=== PATIENT | male | born 1945 | race Caucasian/White ===

== ENCOUNTER 2017-09-25 16:17 | Inpatient (IN) | payer OTHER ==
[~2017-09-25] VITALS: Ht 185.4 cm; Wt 93.0 kg
[~2017-09-25 16:17] MED LIST: ALLO100T PO; COLC0.6T67 PO; DOCU250C PO; FENO160 PO; GLU500 PO; LEVO500T20 PO; NOR10 PO; PRO40 PO
[2017-09-25 18:40] VITALS: BP_SYST 150
[2017-09-25] MEDS ORDERED: ACETAMINOPHEN 325 MG TABLET PO PRN (19:00)
[2017-09-25 19:16] LABS: BASOPHILS % (AUTO) 0.7 % (0.0-2.0); EOSINOPHILS # (AUTO) 0.1 K/uL (0.0-0.4); EOSINOPHILS % (AUTO) 2.8 % (0.0-4.0); HEMATOCRIT 25.2 % (36-54); HEMOGLOBIN 7.6 g/dL (14.0-18.0); LYMPHOCYTES # (AUTO) 1.4 K/uL (1.0-5.5); LYMPHOCYTES % (AUTO) 34.1 % (20.5-51.5); MEAN CORPUSCULAR HEMOGLOBIN 19 pg (27-31); MEAN CORPUSCULAR HGB CONC 30 % (32-36); MEAN CORPUSCULAR VOLUME 65 fL (79.0-98.0); MONOCYTES # (AUTO) 0.5 K/uL (0.0-1.0); MONOCYTES % (AUTO) 11.3 % (1.7-9.3); NEUTROPHILS # (AUTO) 2.2 K/uL (1.8-7.7); NEUTROPHILS % (AUTO) 51.1 % (40.0-70.0); PLATELET COUNT (AUTO) 280 K/uL (130-430); RED CELL DISTRIBUTION WIDTH 19.4 % (9.0-15.0); WHITE BLOOD COUNT (AUTO) 4.3 K/uL (4.8-10.8)
[2017-09-25 19:30] VITALS: BP_SYST 165
[2017-09-25 19:30] LABS: PROTHROMBIN TIME 10.2 SECS (9.5-12.5)
[2017-09-25 19:31] LABS: ALANINE AMINOTRANSFERASE 15 U/L (12-78); ALBUMIN 3.6 g/dL (3.4-4.8); ANION GAP 8 (5-15); ASPARTATE AMINOTRANSFERASE 11 U/L (10-37); CALCIUM 9.2 mg/dL (8.4-11.0); CHLORIDE 103 mmol/L (98-107); CREATININE 0.64 mg/dL (0.55-1.30); GLUCOSE 122 mg/dL (70-99); POTASSIUM 3.7 mmol/L (3.5-5.1); SODIUM SERUM 134 mmol/L (136-145); TOTAL BILIRUBIN 0.3 mg/dL (0.0-1.0); UREA NITROGEN, BLOOD 16 mg/dL (8-21)
[2017-09-25] MEDS ORDERED: LOP600 PO (20:43)
[2017-09-25] MEDS ORDERED: LOSA100T11 PO (20:43)
[2017-09-25] MEDS ORDERED: COLCHICINE 0.6 MG TABLET PO SCH (21:00)
[2017-09-25] MEDS ORDERED: INSULIN ASPART 100 UNITS/ML, 10 ML VIAL (NovoLOG) SUBCUT PRN (21:15)
[2017-09-25] MEDS: GEMFIBROZIL 600 MG TABLET (LOPID) PO SCH (21:30)
[2017-09-25 22:40] VITALS: BP_SYST 165
[2017-09-25] MEDS ORDERED: amLODIPine BESYLATE 5 MG TABLET PO ONE (22:45)
[2017-09-25] MEDS: 0.45% NACL 1,000 ML IV SCH (23:20)
[2017-09-25] MEDS: PANTOPRAZOLE SODIUM 40 MG/VIAL (PROTONIX) IVP SCH (23:20)
[2017-09-26 02:00] VITALS: BP_SYST 180
[2017-09-26 08:14] VITALS: BP_SYST 145
[2017-09-26] MEDS: metFORMIN HCL 500 MG TABLET PO SCH ×2 (08:28→17:34)
[2017-09-26] MEDS: ALLOPURINOL 100 MG TABLET (ZYLOPRIM) PO SCH (08:28)
[2017-09-26] MEDS: GEMFIBROZIL 600 MG TABLET (LOPID) PO SCH ×2 (08:28→21:46)
[2017-09-26] MEDS: LOSARTAN POTASSIUM 50 MG TABLET (COZAAR) PO SCH (08:29)
[2017-09-26] MEDS: PANTOPRAZOLE SODIUM 40 MG/VIAL (PROTONIX) IVP SCH ×2 (08:29→21:46)
[2017-09-26] MEDS ORDERED: DOCUSATE SODIUM 250 MG CAPSULE PO SCH (09:00)
[2017-09-26] MEDS ORDERED: FENOFIBRATE 160 MG TABLET PO SCH (09:00)
[2017-09-26] MEDS ORDERED: amLODIPine BESYLATE 10 MG TABLET PO SCH (09:00)
[2017-09-26 09:59] LABS: TOTAL IRON BIND. CAPACITY 410 ug/dL (250-450)
[2017-09-26] MEDS: 0.45% NACL 1,000 ML IV SCH (11:38)
[2017-09-26] MEDS ORDERED: cefTRIAXone 1 GM in D5W 50 ML IV ONE (12:00)
[2017-09-26 12:24] VITALS: BP_SYST 133
[2017-09-26 14:13] LABS: BILIRUBIN,URINE NEGATIVE (NEGATIVE); BLOOD, URINE NEGATIVE (NEGATIVE); CLARITY/URINE CLEAR (CLEAR); COLOR,URINE YELLOW (YELLOW); GLUCOSE,URINE NEGATIVE (NEGATIVE); KETONES,URINE NEGATIVE (NEGATIVE); LEUKOCYTE ESTERASE ,URINE NEGATIVE (NEGATIVE); NITRITE, URINE NEGATIVE (NEGATIVE); PROTEIN URINE NEGATIVE (NEGATIVE); UROBILINOGEN,URINE 0.2 (0.2-1.0)
[2017-09-26 16:00] VITALS: BP_SYST 132
[2017-09-26 16:41] LABS: BASOPHILS % (AUTO) 0.5 % (0.0-2.0); EOSINOPHILS # (AUTO) 0.1 K/uL (0.0-0.4); EOSINOPHILS % (AUTO) 2.2 % (0.0-4.0); LYMPHOCYTES # (AUTO) 1.2 K/uL (1.0-5.5); MONOCYTES # (AUTO) 0.5 K/uL (0.0-1.0)
[2017-09-26 16:44] LABS: HEMATOCRIT 27.1 % (36-54); LYMPHOCYTES % (AUTO) 30.4 % (20.5-51.5); MEAN CORPUSCULAR HEMOGLOBIN 19 pg (27-31); MEAN CORPUSCULAR HGB CONC 29 % (32-36); MEAN CORPUSCULAR VOLUME 65 fL (79.0-98.0); MONOCYTES % (AUTO) 11.8 % (1.7-9.3); NEUTROPHILS # (AUTO) 2.3 K/uL (1.8-7.7); NEUTROPHILS % (AUTO) 55.1 % (40.0-70.0); PLATELET COUNT (AUTO) 289 K/uL (130-430); RED BLOOD CELL COUNT(AUTO) 4.17 MIL/uL (4.2-6.2); RED CELL DISTRIBUTION WIDTH 19.2 % (9.0-15.0); WHITE BLOOD COUNT (AUTO) 4.1 K/uL (4.8-10.8)
[2017-09-26 16:45] LABS: HEMOGLOBIN 7.8 g/dL (14.0-18.0)
[2017-09-26] MEDS ORDERED: BISACODYL 5 MG TABLET.DR (DULCOLAX) PO ONE (17:00)
[2017-09-26] MEDS ORDERED: GOLYTELY / COLYTE SOLUTION 4 LITERS PO ONE (18:00)
[2017-09-26 20:00] VITALS: BP_SYST 156
[2017-09-26] MEDS: amLODIPine BESYLATE 10 MG TABLET PO SCH (21:47)
[2017-09-27 00:10] VITALS: BP_SYST 122
[2017-09-27] MEDS: 0.45% NACL 1,000 ML IV SCH ×2 (04:20→11:39)
[2017-09-27] MEDS ORDERED: fentaNYL CITRATE/PF 100 MCG/2 ML AMP ONE (06:30)
[2017-09-27] MEDS ORDERED: SIMETHICONE 40 MG/0.6 ML ML ONE (06:30)
[2017-09-27] MEDS ORDERED: MIDAZOLAM HCL 5 MG/5 ML VIAL ONE (06:31)
[2017-09-27 07:12] LABS: INR 1.1 (0.80-1.20)
[2017-09-27] MEDS: PANTOPRAZOLE SODIUM 40 MG/VIAL (PROTONIX) IVP SCH (08:22)
[2017-09-27] MEDS: LOSARTAN POTASSIUM 50 MG TABLET (COZAAR) PO SCH (08:25)
[2017-09-27] MEDS: metFORMIN HCL 500 MG TABLET PO SCH ×2 (08:25→17:48)
[2017-09-27] MEDS: ALLOPURINOL 100 MG TABLET (ZYLOPRIM) PO SCH (08:25)
[2017-09-27] MEDS: GEMFIBROZIL 600 MG TABLET (LOPID) PO SCH ×2 (08:26→21:53)
[2017-09-27 08:39] VITALS: BP_SYST 122
[2017-09-27] MEDS: FERROUS SULFATE 325 MG TABLET.DR PO SCH ×2 (09:12→21:53)
[2017-09-27] MEDS: cefTRIAXone 1 GM in D5W 50 ML IV SCH (09:13)
[2017-09-27 12:32] VITALS: BP_SYST 113
[2017-09-27] MEDS ORDERED: IRON DEXTRAN COMPLEX 25 MG in NS 50 ML IV ONE (14:00)
[2017-09-27 16:00] VITALS: BP_SYST 121
[2017-09-27] MEDS ORDERED: IRON DEXTRAN COMPLEX 75 MG in NS 100 ML IV ONE (16:00)
[2017-09-27 20:00] VITALS: BP_SYST 144
[2017-09-27] MEDS: amLODIPine BESYLATE 10 MG TABLET PO SCH (21:54)
[2017-09-28 00:23] VITALS: BP_SYST 158
[2017-09-28] MEDS: 0.45% NACL 1,000 ML IV SCH ×2 (05:24→22:43)
[2017-09-28 06:32] LABS: BASOPHILS % (AUTO) 0.4 % (0.0-2.0); EOSINOPHILS # (AUTO) 0.1 K/uL (0.0-0.4); EOSINOPHILS % (AUTO) 3.1 % (0.0-4.0); HEMATOCRIT 26.3 % (36-54); HEMOGLOBIN 7.8 g/dL (14.0-18.0); LYMPHOCYTES # (AUTO) 1.2 K/uL (1.0-5.5); LYMPHOCYTES % (AUTO) 26.6 % (20.5-51.5); MEAN CORPUSCULAR HEMOGLOBIN 19 pg (27-31); MEAN CORPUSCULAR HGB CONC 30 % (32-36); MEAN CORPUSCULAR VOLUME 65 fL (79.0-98.0); MONOCYTES # (AUTO) 0.6 K/uL (0.0-1.0); MONOCYTES % (AUTO) 12.4 % (1.7-9.3); NEUTROPHILS # (AUTO) 2.6 K/uL (1.8-7.7); NEUTROPHILS % (AUTO) 57.5 % (40.0-70.0); PLATELET COUNT (AUTO) 232 K/uL (130-430); RED BLOOD CELL COUNT(AUTO) 4.09 MIL/uL (4.2-6.2); WHITE BLOOD COUNT (AUTO) 4.5 K/uL (4.8-10.8)
[2017-09-28 06:39] LABS: ALANINE AMINOTRANSFERASE 14 U/L (12-78); ALBUMIN 3.2 g/dL (3.4-4.8); ANION GAP 7 (5-15); ASPARTATE AMINOTRANSFERASE 12 U/L (10-37); CALCIUM 9.2 mg/dL (8.4-11.0); CHLORIDE 106 mmol/L (98-107); CREATININE 0.72 mg/dL (0.55-1.30); GLUCOSE 120 mg/dL (70-99); SODIUM SERUM 141 mmol/L (136-145); TOTAL BILIRUBIN 0.4 mg/dL (0.0-1.0); UREA NITROGEN, BLOOD 8 mg/dL (8-21)
[2017-09-28 06:54] LABS: RED CELL DISTRIBUTION WIDTH 18.9 % (9.0-15.0)
[2017-09-28 07:51] VITALS: BP_SYST 143
[2017-09-28] MEDS: PANTOPRAZOLE SODIUM 40 MG/VIAL (PROTONIX) IVP SCH (08:32)
[2017-09-28] MEDS: LOSARTAN POTASSIUM 50 MG TABLET (COZAAR) PO SCH (08:37)
[2017-09-28] MEDS: FERROUS SULFATE 325 MG TABLET.DR PO SCH ×2 (08:37→21:03)
[2017-09-28] MEDS: GEMFIBROZIL 600 MG TABLET (LOPID) PO SCH ×2 (08:37→20:57)
[2017-09-28] MEDS: metFORMIN HCL 500 MG TABLET PO SCH ×2 (08:37→18:03)
[2017-09-28] MEDS: ALLOPURINOL 100 MG TABLET (ZYLOPRIM) PO SCH (08:37)
[2017-09-28] MEDS: cefTRIAXone 1 GM in D5W 50 ML IV SCH (09:19)
[2017-09-28 12:00] VITALS: BP_SYST 122
[2017-09-28 14:25] VITALS: BP_SYST 122
[2017-09-28 16:12] VITALS: BP_SYST 131; BP_SYST 146
[2017-09-28] MEDS ORDERED: IRON DEXTRAN COMPLEX 100 MG in NS 100 ML IV SCH (17:00)
[2017-09-28 20:00] VITALS: BP_SYST 132
[2017-09-28] MEDS: amLODIPine BESYLATE 10 MG TABLET PO SCH (21:01)
[2017-09-29] VITALS: BP_SYST 147
[2017-09-29 07:59] VITALS: BP_SYST 149
[2017-09-29] MEDS: PANTOPRAZOLE SODIUM 40 MG/VIAL (PROTONIX) IVP SCH (08:36)
[2017-09-29] MEDS: FERROUS SULFATE 325 MG TABLET.DR PO SCH (08:37)
[2017-09-29] MEDS: ALLOPURINOL 100 MG TABLET (ZYLOPRIM) PO SCH (08:37)
[2017-09-29] MEDS: metFORMIN HCL 500 MG TABLET PO SCH ×2 (08:37→19:03)
[2017-09-29] MEDS: cefTRIAXone 1 GM in D5W 50 ML IV SCH (08:37)
[2017-09-29] MEDS: GEMFIBROZIL 600 MG TABLET (LOPID) PO SCH (08:38)
[2017-09-29] MEDS: LOSARTAN POTASSIUM 50 MG TABLET (COZAAR) PO SCH (08:38)
[2017-09-29] MEDS: 0.45% NACL 1,000 ML IV SCH (18:49)
[2017-09-29 20:21] VITALS: BP_SYST 136
[2017-09-30 05:23] LABS: FOLATE (FOLIC ACID) 8.4 ng/mL (>3.0)
[2017-09-30 18:29] LABS: FERRITIN 13 ng/mL (30-400)
== END 2017-09-29 20:55 | disposition home or self-care (01) | DRG 377 ==
LOC: SMU 18:06
PROVIDERS: ADMIT Internal Medicine Infectious Disease; ATTEND Internal Medicine Infectious Disease
PROC: 0DB68ZX Excision of Stomach, Via Natural or Artificial Opening Endoscopic, Diagnostic (ICD-10-PCS; principal; 2017-09-27 07:15)
PROC: 0DJD8ZZ Inspection of Lower Intestinal Tract, Via Natural or Artificial Opening Endoscopic (ICD-10-PCS; 2017-09-27 07:15)
DX: K92.2 Gastrointestinal hemorrhage, unspecified (principal); J18.9 Pneumonia, unspecified organism; J44.0 Chronic obstructive pulmonary disease with (acute) lower respiratory infection; E11.9 Type 2 diabetes mellitus without complications; D50.9 Iron deficiency anemia, unspecified; E78.5 Hyperlipidemia, unspecified; I10 Essential (primary) hypertension; G47.33 Obstructive sleep apnea (adult) (pediatric); G89.29 Other chronic pain; K20.9 Esophagitis, unspecified; M10.9 Gout, unspecified; H10.10 Acute atopic conjunctivitis, unspecified eye; M54.5 Low back pain; K29.50 Unspecified chronic gastritis without bleeding; K44.9 Diaphragmatic hernia without obstruction or gangrene; K57.30 Diverticulosis of large intestine without perforation or abscess without bleeding; K64.8 Other hemorrhoids; M60.9 Myositis, unspecified; M79.7 Fibromyalgia; M85.80 Other specified disorders of bone density and structure, unspecified site; Z83.3 Family history of diabetes mellitus; Z87.891 Personal history of nicotine dependence
CPT/HCPCS: 36415; 43239; 45378; 71045; 74018; 80053; 81003; 82272; 82607; 82728; 82746; 82962; 83540-TC; 83550-TC; 85025; 85610-TC; 85730-TC; 87070-TC; 87081; 87205-TC; 94660; 94760; C9113; J0696; J1750; J1815; J2250; J3010; J7030; J7060